=== PATIENT | female | born 1975 | race Caucasian/White ===

== ENCOUNTER 2020-12-08 21:14 | Emergency (ER) | payer SELFPAY ==
[~2020-12-08] VITALS: Ht 157.5 cm; Wt 73.0 kg
[2020-12-08] MEDS ORDERED: IBUPROFEN 600MG TABLET PO ONE (23:15)
[2020-12-09] MEDS ORDERED: IBUP-2029 MT (00:27)
[2020-12-09] MEDS ORDERED: CYCL10TA7 MT (00:29)
[2020-12-09 00:45] VITALS: BP 129/78
== END 2020-12-09 00:51 | disposition home or self-care (01) ==
LOC: ER 21:14
DX: R07.9 Chest pain, unspecified (principal); M25.511 Pain in right shoulder; M79.18 Myalgia, other site
CPT/HCPCS: 71045; 73030; 93005; 99284